=== PATIENT | male | born 1990 | race Hispanic/Latino ===

== ENCOUNTER 2018-08-26 11:58 | Emergency (ER) | payer SELFPAY ==
--- NOTE | 2018-08-26 12:39 | Emergency Department Report ---
Blank Doc - Documentation Documentation: 27 y/o male comes in for a bump on his lip with no pain.
[2018-08-26 12:40] VITALS: BP 144/81
== END 2018-08-26 12:52 | disposition left against medical advice (07) ==
LOC: ED 11:58
DX: K13.0 Diseases of lips (principal); Z53.21 Procedure and treatment not carried out due to patient leaving prior to being seen by health care provider